=== PATIENT | male | born 1950 | race African-American/Black ===

== ENCOUNTER 2017-11-19 06:04 | Day surgery (SDC) | payer MEDICARE, OTHER ==
[~2017-11-19] VITALS: Ht 172.7 cm; Wt 82.8 kg
[~2017-11-19 06:04] MED LIST: AMLO5 PO; LORTA5 PO; PRIN20TA2 PO
[2017-11-19] MEDS ORDERED: IOHEXOL 350 MG/ML 100 ML BTL (for Cath Lab) OTHER ONE (06:05)
[2017-11-19 07:00] VITALS: BP 176/97; PULSE 63; RESP 18; TEMP 98.1; O2SAT 100
[2017-11-19] MEDS ORDERED: SODIUM CHLOR 0.9% 1000 ML INJ 1,000 ML IV SCH ×2 (07:00→10:39)
[2017-11-19] MEDS ORDERED: LISI-515 PO ×2 (07:09)
[2017-11-19] MEDS ORDERED: ECASA81 PO (07:09)
[2017-11-19] MEDS ORDERED: ATOR40TA16 PO (07:09)
[2017-11-19] MEDS ORDERED: AMLO2.5T PO (07:09)
[2017-11-19] MEDS ORDERED: HEPARIN-NS/PF FLUSH BAG 2,000 ML IV FLUSH ONE (08:01)
[2017-11-19] MEDS ORDERED: MIDAZOLAM HCL 2 MG/2 ML VIAL ONE ×3 (08:33→09:47)
[2017-11-19] MEDS ORDERED: HEPARIN SODIUM - IV 10,000 UNITS/10 ML VIAL ONE (08:34)
[2017-11-19] MEDS ORDERED: CLOPIDOGREL 300 MG TAB ONE (10:17)
--- NOTE | 2017-11-19 10:32 | CATHPROC ---
TeamLINKS HIS Report Study Information Study Number Admission Scheduled Start Study Start [id number] Nov 19 2017 6:04AM 11/19/2017 Nov 19 2017 7:58AM Ransom Service Cath Endovascular Study Admit Source Facility Department Other [facility] Physician and Clinical Staff Initial Abdelrahman Lamas Senior Accountant Analyst Renetta Ferrari,KOMAL Other Maykel Hu,RT(R) Recorder Michael SAUCEDA, Jet Brock,RT(R) Procedures Performed Procedure Location (Site) Vessel Name Abdominal Angiogram Abd Aorta (A3) Aorta Angiogram (manual) Iliac L. Com. (L4) [place] Art. Angiogram (manual) Popliteal R (R10) Popliteal Angiogram (manual) SFA (right) Femoral Art Angiogram (manual) Tib, Ant. (right) Popliteal Angiogram (manual) Tib, Post (right) Popliteal Periph stent Iliac L. Ext. (L5) [place] Art. Periph stent SFA (right) Femoral Art BENEFITS DIRECTOR Iliac L. Ext. (L5) [place] Art. BENEFITS DIRECTOR SFA (right) Femoral Art Wire insertion Fem Art (left) Femoral Art Equipment Time Hatchery Manager Description Size Mfg Part Number Used/Scraped WIRE, GUIDE APPROACH HYDRO [id number] 09:13 COOK/MANDEEP 300CM Used ST *[id number] 07:59 CORDIS/ MANDEEP RIM SUPER TORQUE CATHETER FR 5 Used *[id number] WIRE, STORQ STANDARD MOD J [id number] 09:36 CORDIS/ MANDEEP 300CM Used 300CM *[id number] *[id number] 10:17 DAI/ST. SHANIQUE MEDICAL ANGIOSEAL, FR6 VIP FR 6 Used *[id number] ENDOVASCULAR [id number] 09:57 STENT, EVERFLEX 7 X 100 120CM 7 X 100 Used OneRecruit 120 ENDOVASCULAR 10:08 STENT, EVERFLEX 8 X 60 80CM 8 X 60 [id number] Used OneRecruit BALLOON, ADMIRAL EXTREME 5 [id number] 09:40 INVATEC [employer] 130CM Used X 300 130CM *[id number] BALLOON, ADMIRAL EXTREME 7 [id number] 10:15 [employer]VATEC [employer] 130CM Used X 40 130CM *[id number] BALLOON, ADMIRAL IN.PACT 6 X [id number] 09:49 [employer]VATEC [employer] 130CM Used 150 130CM *[id number] CATHETER, FR5 TRAILBLAZER [id number] 09:16 INVATEC [employer] 135CM Used .035 *[id number] 07:59 MALLINCKRODT SYRINGE, ANGIOMAT 150ML 150ML [id number] Used [id number] 07:59 MEDLINE INDUSTRIES PACK, CCL CUSTOM * Used *[id number] 07:59 MEDLINE PACER PEN, SKIN DUAL W/ RULER * Used *[id number] PIG ANG 145 DXTERITY 08:54 MEDTRONIC FR 5 [id number] Used CATHETER [id number] 10:17 Belly Ballot MEDICAL SHEATH, FR6.5 PRELUDE 11CM FR 6.5 038ACT Used *[id number] 07:59 Belly Ballot MEDICAL WIRE, EXCHANGE 260CM 3MMJ 260CM Used *[id number] 07:59 NAMIC MANIFOLD, 4 PORT * Used *[id number] 07:59 NAMIC TUBING, HIGH PRESSURE 48" 48" Used *[id number] 07:59 NYCOMED OMNIPAQUE, 300 MG, 150ML 150ML [id number] Used [id number] 07:59 [place] MEDICAL BLANKET,WARM AIR CCL * Used *[id number] PTD292 07:59 TERUMO MEDICAL SHEATH, FR5 TERUMO (10CM) FR 5 Used *[id number] SHEATH, FR6 PINNACLE [id number] 09:25 TERUMO MEDICAL/MANDEEP FR 6 Used DESTINATION 45CM *[id number] WIRE, ANGLE GLIDE STIFF .035 [id number] 07:59 TERUMO MEDICAL/MANEDEP 260CM Used 260CM *[id number] Equipment Model, Serial, Lot Number and Expiration Data Description Model Number Serial Number Lot Number Expiration Date ANGIOSEAL, FR6 VIP [id number] 07-21-2018 CATHETER, FR5 TRAILBLAZER .035 [id number] 10-31-2019 STENT, EVERFLEX 7 X 100 120CM [id number] 04-28-2020 STENT, EVERFLEX 8 X 60 80CM [id number] 07-31-2019 WIRE, GUIDE APPROACH HYDRO [id number] 04-11-2020 ST History: Allergies Allergy Reaction NKDA Labs Hgb (g/dl) Hct (%) RBC (MIL/MM3) WBC (l/cumm) Platelets (thousands) 11.60-17.00 35.00-51.00 4.00-5.90 4.00-11.00 150.00-450.00 16.1 49 5.2 5.1 266 Glucose (mg/dl) BUN (mg/dl) Creatinine (mg/dl) BUN:Creatinine (1:x) 74.00-106.00 7.00-18.00 0.50-1.30 10.00-20.00 95 14 1.3 10.8 Na (meq/l) K (meq/l) 136.00-145.00 3.50-5.10 140 5 INR (PTT:PT) 0.90-1.10 1 CPK-MB (ng/ML) 0.50-3.60 Not Drawn Medication Medication Total Dose (Bolus/Oral) Medication Total Dosage/Unit 1% XYLOCAINE 20 mL FENTANYL 150 mcg HEPARIN 6000 units NTG (IC) 500 mcg PLAVIX 600 mg VERSED 6 mg Medications (Bolus/Oral) Medication Time Given Dosage/Unit Administered By Reason VERSED 11/19/2017 9:00:14 AM 2 mg Renetta Ferrari For sedation 2 mg VERSED given in lab by Renetta Ferrari RN via Peripheral IV. Ordered by Abdelrahman Patton. Reason: For sedation. FENTANYL 11/19/2017 9:01:46 AM 50 mcg Renetta Ferrari For sedation 50 mcg FENTANYL given in lab by Renetta Ferrari, RN via Peripheral IV. Ordered by Abdelrahman Patton. Reas on: For sedation. 1% XYLOCAINE 11/19/2017 9:03:51 AM 20 mL Abdelrahman Patton 20 mL 1% XYLOCAINE given in lab by Abdelrahman Patton in Left Groin via Subcutaneous. VERSED 11/19/2017 9:16:08 AM 1 mg Renetta Ferrari For sedation 1 mg VERSED given in lab by Renetta Ferrari, KOMAL via Peripheral IV. Ordered by Abdelrahman Patton. Reason: For sedation. FENTANYL 11/19/2017 9:17:15 AM 25 mcg Renetta Ferrari For sedation 25 mcg FENTANYL given in lab by Renetta Ferrari, KOMAL via Peripheral IV. Ordered by Abdelrahman Patton. Reas on: For sedation. HEPARIN 11/19/2017 9:33:17 AM 5000 units Renetta Ferrari 5000 units HEPARIN given in lab by Renetta Ferrari RN via Peripheral IV. Ordered by Abdelrahman Patton. VERSED 11/19/2017 9:41:28 AM 1 mg Celestino Ferrarion For sedation 1 mg VERSED given in lab by Renetta Ferrari RN via Peripheral IV. Ordered by Abdelrahman Patton. Reason: For sedation. HEPARIN 11/19/2017 9:42:04 AM 1000 units Renetta Ferrari 1000 units HEPARIN given in lab by Renetta Ferrari RN via Peripheral IV. Ordered by Abdelrahman Patton. FENTANYL 11/19/2017 9:42:34 AM 25 mcg Renetta Ferrari For sedation 25 mcg FENTANYL given in lab by Renetta Ferrari RN via Peripheral IV. Ordered by Abdelrahman Patton. Reas on: For sedation. NTG (IC) 11/19/2017 9:45:48 AM 100 mcg Abdelrahman Patton 100 mcg NTG (IC) given in lab by Abdelrahman Patton via Intra-arterial. Ordered by Abdelrahman Patton. VERSED 11/19/2017 9:48:30 AM 1 mg Renetta Ferrari For sedation 1 mg VERSED given in lab by Renetta Ferrari RN via Peripheral IV. Ordered by Abdelrahman Patton. Reason: For sedation. FENTANYL 11/19/2017 9:50:07 AM 25 mcg Renetta Ferrari For sedation 25 mcg FENTANYL given in lab by Renetta Ferrari RN via Peripheral IV. Ordered by Abdelrahman Patton. Reas on: For sedation. VERSED 11/19/2017 9:53:28 AM 1 mg Renetta Ferrari For sedation 1 mg VERSED given in lab by Renetta Ferrari RN via Peripheral IV. Ordered by Abdelrahman Patton. Reason: For sedation. FENTANYL 11/19/2017 9:54:32 AM 25 mcg Renetta Ferrari For sedation 25 mcg FENTANYL given in lab by Renetta Ferrari RN via Peripheral IV. Ordered by Abdelrahman Patton. Reas on: For sedation. NTG (IC) 11/19/2017 9:54:37 AM 400 mcg Abdelrahman Patton 400 mcg NTG (IC) given in lab by Abdelrahman Patton via Intra-arterial. Ordered by Abdelrahman Patton. PLAVIX 11/19/2017 10:22:49 AM 600 mg Renetta Ferrari 600 mg PLAVIX given in lab by Renetta Ferrari, RN via Oral. Ordered by Abdelrahman Patton. Initial Case Assessment Cardiovascular NIBP 152/86 Edema Present Skin color Skin None Normal Warm Dry Circulatory - Right Pulses Dorsalis Pedis Femoral d 2 Scale (0,1,2,3,4,d) Circulatory - Left Pulses Dorsalis Pedis Femoral d 1 Scale (0,1,2,3,4,d) Neurological State Oriented to time-place- Alert Moves all extremities person Respiration - General Respiration Rate SpO2 (%) (B/min) 20 98 Chronological Log Time Study Chronological Log 8:32:35 Patient arrived via Bed. 8:32:37 Patient Name, D.O.B, / Armband Verified By R.N. 8:32:39 Consent signed by the physician and the patient and verified by the [facility] staff. 8:32:41 Pre-op and post- op instructions given; patient acknowledges understanding of instructions. 8:33:24 History and physical on the chart or being dictated. Vitals capture started with the following parameters, Patient=Adult, Interval=5 min, Initial Pr owfrnt=465 mmHg, 8:43:46 Deflation Rate=5 mmHg, Cuff placed on Right Ankle 8:43:51 Presedation assessment performed by [facility] RN. 8:45:02 HR=59 bpm, RHAE=179/86 mmhg, SpO2=99.0 %, Resp=20 B/min, Pain=0, Misael=10, Crooks=2 8:46:07 Patient has been NPO for More than 6Hrs. 8:46:13 Skin Breakdown- none reported 8:46:30 Frances Prominences Protected 8:46:34 A # 20 IV was noted in the Antecubital (left). Grade = 0 NS @ KVO Assessment: Initial Case, PODJ=460/86 mmhg, Edema=None, Color=Normal, Skin = Warm, Dry Right Pulses: Kendall Ped=d, Femoral=2 8:47:33 Left Pulses: Kendall Ped=d, Femoral=1 Neurological: State=Alert, Ox3, GALLEGOS Respiration: Resp=20 B/min, SpO2=98 % 8:48:55 Bilateral groins prepped with 2% chlorhexidine, and draped after a 3 min. waiting time. 8:49:26 HR=60 bpm, VRUW=410/83 mmhg, SpO2=98.0 %, Resp=16 B/min, Crooks=2 8:54:08 MD paged 8:54:27 HR=57 bpm, JKIC=206/77 mmhg, SpO2=99.0 %, Resp=20 B/min, Crooks=2 8:54:40 Reference ECG taken 8:56:46 Pressure channel 1 zeroed. 8:57:22 MD responded 8:59:26 HR=58 bpm, SULT=196/80 mmhg, NyG1=309.0 %, Resp=17 B/min, Crooks=2 9:00:14 2 mg VERSED given in lab by Renetta Ferrari, RN via Peripheral IV. Ordered by Abdelrahman Patton. Reason: For sedation. :00:46 MD arrived. 50 mcg FENTANYL given in lab by Renetta Ferrari, RN via Peripheral IV. Ordered by Abdelrahman Patton. Reason: For ::46 sedation. Time Out. Correct patient, correct procedure, correct physician, power injector loaded, or not l oaded with contrast with 9:02:20 surgical team present. Time Out Concurred by MD and individual staff in procedure. 9:02:29 Case Start 9:03:51 20 mL 1% XYLOCAINE given in lab by Abdelrahman Patton in Left Groin via Subcutaneous. 9:04:54 HR=57 bpm, OYCB=332/70 mmhg, CkP9=374.0 %, Resp=20 B/min, Crooks=2 9:08:43 Access site was Left Femoral Artery. 9:09:02 5 fr dilator inserted 9:09:05 A WIRE, ANGLE GLIDE STIFF .035 260CM 260CM was inserted via Fem Art (left). 9:09:24 HR=55 bpm, NWGG=455/73 mmhg, NxF8=408.0 %, Resp=16 B/min, Crooks=2 9:12:38 A SHEATH, FR5 TERUMO (10CM) FR 5 was advanced into the Fem Art (left) using the Modified Lilly brendan technique. 9:13:04 Wire removed 9:13:12 A WIRE, GUIDE APPROACH HYDRO ST 300CM was inserted via Fem Art (left). 9:14:21 HR=56 bpm, RKHI=840/69 mmhg, NyM3=405.0 %, Resp=17 B/min, Crooks=2 A CATHETER, FR5 TRAILBLAZER .035 135CM was advanced over a wire. OMNIPAQUE, 300 MG, 150ML 150ML was 9:15:56 used for injections. 9:16:08 1 mg VERSED given in lab by Renetta Ferrari, KOMAL via Peripheral IV. Ordered by Abdelrahman Patton. Reason: For sedation. 9:16:27 Wire removed 9:16:54 A WIRE, ANGLE GLIDE STIFF .035 260CM 260CM was inserted via Fem Art (left). 25 mcg FENTANYL given in lab by Renetta Ferrari, KOMAL via Peripheral IV. Ordered by Abdelrahman Patton. Reason: For 9:17:15 sedation. 9:17:21 Catheter was removed A PIGTAIL ANG. INFINITI CATHETER FR 5 was advanced over a wire. OMNIPAQUE, 300 MG, 150ML 150ML w as used 9:17:47 for injections. 9:18:48 Wire removed 9:19:06 Through a PIGTAIL ANG. INFINITI CATHETER FR 5, The Abdominal Aorta was injected with 20 cc's of contrast. 9:19:24 HR=54 bpm, FRAR=017/71 mmhg, TaK1=853.0 %, Resp=26 B/min, Crooks=2 9:20:32 A WIRE, ANGLE GLIDE STIFF .035 260CM 260CM was inserted via Fem Art (left). After removing the current catheter a RIM SUPER TORQUE CATHETER FR 5 was advanced over a WIRE, A NGLE GLIDE 9:20:47 STIFF .035 260CM 260CM. Recorded Pressure: Ao, HR=56, Condition=Condition 1 9:22:12 (Aorta) Ao 120/56/80 9:22:35 Through a RIM SUPER TORQUE CATHETER FR 5, The Iliac R. Com. (R4) was injected with 5 cc's of contrast. 9:23:06 Through a RIM SUPER TORQUE CATHETER FR 5, The Iliac R. Com. (R4) was injected with 5 cc's of contrast. 9:23:33 SFA (right) angiogram, manually injected. 9:24:23 HR=60 bpm, ZXAX=688/74 mmhg, JvC8=474.0 %, Resp=19 B/min, Crooks=2 9:24:59 Popliteal R (R10) angiogram, manually injected. 9:25:41 Tib, Ant. (right) angiogram, manually injected. 9:26:06 Tib, Post (right) angiogram, manually injected. 9:26:28 A WIRE, ANGLE GLIDE STIFF .035 260CM 260CM was inserted via Fem Art (left). A SHEATH, FR6 PINNACLE DESTINATION 45CM FR 6 was exchanged in the Fem Art (left). This was julia roberson in order 9:29:22 to accomodate a larger catheter. 9:29:24 HR=66 bpm, SMMQ=480/77 mmhg, YeX8=976.0 %, Resp=16 B/min, Crooks=4 9:30:35 Wire removed 9:31:36 A WIRE, ANGLE GLIDE STIFF .035 260CM 260CM was inserted via Fem Art (left). 9:31:43 A CATHETER, FR5 TRAILBLAZER .035 135CM was advanced over a wire. contrast was used for injec tions. 9:33:17 5000 units HEPARIN given in lab by Renetta Ferrari RN via Peripheral IV. Ordered by Ruel Patton. 9:34:23 HR=61 bpm, VJJZ=883/76 mmhg, ThL8=697.0 %, Resp=18 B/min, Crooks=4 9:36:48 The previous wire was exchanged for a WIRE, STORQ STANDARD MOD J 300CM 300CM. 9:39:26 HR=56 bpm, OLVK=423/71 mmhg, XeP6=236.0 %, Resp=19 B/min, Crooks=4 A BALLOON, ADMIRAL EXTREME 5 X 300 130CM 130CM was inserted over WIRE, STORQ STANDARD MOD J 300C M 9:39:52 300CM via the SFA (right). 9:40:25 In the SFA (right) a BALLOON, ADMIRAL EXTREME 5 X 300 130CM 130CM was inflated to 8 atms for 60 seconds. 9:41:28 1 mg VERSED given in lab by Renetta Ferrari RN via Peripheral IV. Ordered by Abdelrahman Patton. Reason: For sedation. 9:42:04 1000 units HEPARIN given in lab by Renetta Ferrari, KOMAL via Peripheral IV. Ordered by Ruel Patton. 25 mcg FENTANYL given in lab by Renetta Ferrari RN via Peripheral IV. Ordered by Abdelrahman Patton. Reason: For 9:42:34 sedation. 9:44:09 ACT (Normal Range 90-180) = 270 9:45:02 HR=69 bpm, ZGXH=470/98 mmhg, QbU2=381.0 %, Resp=20 B/min, Crooks=4 9:45:13 In the SFA (right) a BALLOON, ADMIRAL EXTREME 5 X 300 130CM 130CM was inflated to 8 atms for 90 seconds. 9:45:29 Balloon Removed. 9:45:48 100 mcg NTG (IC) given in lab by Abdelarhman Patton via Intra-arterial. Ordered by Babatunde Patton 9:48:30 1 mg VERSED given in lab by Renetta Ferrari, KOMAL via Peripheral IV. Ordered by Abdelrahman Patton. Reason: For sedation. A BALLOON, ADMIRAL IN.PACT 6 X 150 130CM 130CM was inserted over WIRE, STORQ STANDARD MOD J 300C M 9:49:19 300CM via the SFA (right). 9:49:29 HR=71 bpm, APLD=590/89 mmhg, LrO0=952.0 %, Resp=16 B/min, Crooks=4 25 mcg FENTANYL given in lab by Renetta Ferrari RN via Peripheral IV. Ordered by Abdelrahman Patton. Reason: For 9:50:07 sedation. 9:51:19 In the SFA (right) a BALLOON, ADMIRAL IN.PACT 6 X 150 130CM 130CM was inflated to 8 atms for 180 seconds. 9:52:37 In the SFA (right) a BALLOON, ADMIRAL IN.PACT 6 X 150 130CM 130CM was inflated to 8 atms for 45 seconds. 9:53:28 1 mg VERSED given in lab by Renetta Ferrari, KOMAL via Peripheral IV. Ordered by Abdelrahman Patton. Reason: For sedation. 9:54:05 Balloon Removed. 25 mcg FENTANYL given in lab by Renetta Ferrari, KOMAL via Peripheral IV. Ordered by Abdelrahman Patton. Reason: For 9:54:32 sedation. 9:54:37 400 mcg NTG (IC) given in lab by Abdelrahman Patton via Intra-arterial. Ordered by Babatunde Patton n. 9:55:15 HR=76 bpm, UACV=386/77 mmhg, UyJ5=135.0 %, Resp=20 B/min, Crooks=2 A STENT, EVERFLEX 7 X 100 120CM 7 X 100 was advanced through a catheter over a WIRE, STORQ STAND MYRA MOD J 9:57:23 300CM 300CM. 9:59:33 HR=75 bpm, TDNT=529/63 mmhg, WrU4=731.0 %, Resp=14 B/min, Crooks=2 9:59:51 Activated Clotting Time Drawn 10:00:36 A STENT, EVERFLEX 7 X 100 120CM 7 X 100 was deployed at in the SFA (right). 10:01:13 Delivery device removed A BALLOON, ADMIRAL IN.PACT 6 X 150 130CM 130CM was inserted over WIRE, moziy STANDARD MOD J 300 CM 10:01:21 300CM via the SFA (right). 10:01:42 In the SFA (right) a BALLOON, ADMIRAL IN.PACT 6 X 150 130CM 130CM was inflated to 8 atms fo r 10 seconds. 10:02:34 ACT (Normal Range 90-180) = 302 10:03:41 Balloon Removed. 10:04:30 HR=73 bpm, AWUS=416/77 mmhg, ReX6=404.0 %, Resp=19 B/min, Crooks=2 10:05:24 Iliac L. Com. (L4) angiogram, manually injected. 10:09:31 HR=57 bpm, WPRA=080/72 mmhg, GpY2=359.0 %, Resp=15 B/min, Crooks=2 A STENT, EVERFLEX 8 X 60 80CM 8 X 60 was advanced through a catheter over a WIRE, moziy STANDAR D MOD J 10:10:28 300CM 300CM. 10:12:58 A STENT, EVERFLEX 8 X 60 80CM 8 X 60 was deployed Iliac L. Ext. (L5). 10:13:55 Delivery device removed 10:14:34 HR=54 bpm, ZGZU=671/65 mmhg, Resp=17 B/min, Crooks=2 A BALLOON, ADMIRAL EXTREME 7 X 40 130CM 130CM was inserted over WIRE, STORQ STANDARD MOD J 300C M 10:15:02 300CM via the Iliac L. Ext. (L5). 10:15:26 In the Iliac L. Ext. (L5) a BALLOON, ADMIRAL EXTREME 7 X 40 130CM 130CM was inflated to 8 a tms for 20 seconds. A SHEATH, FR6.5 PRELUDE 11CM FR 6.5 was exchanged in the Fem Art (left). This was necessary in order to achieve 10:17:05 vascular hemostasis. 10:19:35 Peripheral Vascular Intervention Performed. 10:20:02 HR=59 bpm, SGNT=937/81 mmhg, SpO2=99.0 %, Resp=14 B/min, Crooks=2 10:20:13 ANGIOSEAL, FR6 VIP FR 6 placement in the Fem Art (left) 10:20:47 Case End 10:21:01 Sterile dressing applied to site 10:21:04 No case complications noted. 10:22:49 600 mg PLAVIX given in lab by Renetta Ferrari RN via Oral. Ordered by Abdelrahman Patton. 10:24:30 HR=57 bpm, MOWM=804/75 mmhg, GqJ9=560.0 %, Resp=27 B/min, Crooks=2 10:24:42 Implantable Device card placed in patient's chart. 10:27:04 DOCU called. 10:29:13 Vitals capture stopped. 10:31:29 Patient moved to [facility] End Study - Contrast Media Used In Study Contrast Total Opened (mL) Total Used (mL) Total Wasted (mL) Omnipaque 200 170 30 End Study - Maximum Contrast Load Max Contrast Load (mL) 318.5 End Study - Radiation Exposure Fluoro Time (minutes) 21.7 End Study - Patient Disposition Complications Transferred To Interventional Outcome No [facility] Holding successful
[2017-11-19] MEDS ORDERED: ATROPINE SULFATE 1 MG/ML VIAL IV PUSH PRN (10:45)
[2017-11-19] MEDS ORDERED: METOCLOPRAMIDE HCL 10 MG/2 ML VIAL IV PUSH PRN (10:45)
[2017-11-19] MEDS ORDERED: BACITRACIN OINT 0.9 GM PKT TOP ONE (10:45)
[2017-11-19] MEDS ORDERED: MISC INFORMATION XX ONE (10:45)
[2017-11-19] MEDS ORDERED: oxyCODONE/ACETAMINOPHEN 5 MG/325 MG TAB PO PRN (10:45)
[2017-11-19] MEDS ORDERED: SODIUM CHLOR 0.9% 250 ML INJ 250 ML IV PRN (10:45)
[2017-11-19] MEDS ORDERED: oxyCODONE/ACETAMINOPHEN 10 MG/325 MG TAB PO PRN (10:45)
[2017-11-19] MEDS ORDERED: PLAV75TA29 PO (10:46)
--- NOTE | 2017-11-19 11:52 | MA ---
cc: Abdelrahman Patton MD 11/19/2017 PERIPHERAL ANGIOGRAPHY WITH INTERVENTION PROCEDURE PERFORMED: 1. Fluoroscopy with interpretation. 2. Descending aortography. 3. Right lower extremity peripheral angiography. First, second and third order visualization interpretation. 4. Percutaneous transluminal angioplasty with drug-coated balloon and endovascular stenting of the chronically occluded right superficial femoral artery. 5. Percutaneous intervention stenting self-expanding of the external iliac artery. METHOD: Risks, benefits and alternatives discussed with the patient. The understood, consent to the procedure. The patient was brought to the catheterization lab, placed on the catheterization table. Left groin was prepped and draped in a sterile fashion. Left groin was anesthetized with 2% lidocaine. The left common femoral artery was cannulated and 5 Danish 11 cm sheath was placed without difficulty. We had difficulty navigating up the left external iliac artery. Not only was it tortuous, but there was also severe stenosis. We tried with a regular J and a Glidewire. We ultimately got through with a 0.014-inch [place] [address] ST 300 cm wire, advanced that to the descending aorta and exchanged using an 0.035 TrailBlazer catheter. A 360 J-wire was then advanced in descending aorta. DESCENDING AORTOGRAPHY: Descending aortography was performed anterior-posterior views using 20 mL contrast injection, good opacification. Descending aortography revealed mild inferior and descending aortic atherosclerosis. Bilateral renal arteries widely patent. PERIPHERAL ANGIOGRAPHY: common iliac artery has mild diffuse disease with some mildly aneurysmal segments but nothing that appears severe. Right external also has some mild disease, does not appear obstructive. Right internal iliac is widely patent. Right common femoral and profunda arteries are patent. Superficial femoral artery is occluded through the entire prox and mid segment, does recanalize via profunda collaterals distally. Popliteal has mild irregularities. Anterior tibial has a focal 70% lesion in the mid segment and the peroneal and posterior tibial vessels are smaller caliber size but do reach the level of the ankle. The dorsalis pedis feeds pretty much the entire foot. PERCUTANEOUS INTERVENTION: A 0.035-inch 260 cm stiff angled Glidewire was navigated down through a RIM catheter, selectively engaged in the right common iliac artery into the origin of the right superficial femoral artery. A 6 Danish 45 cm [employer] [place] sheath was advanced up in the aortic arch into the right common femoral artery. With some time and effort, we were finally able to cross through the chronic occlusion using a Glidewire in addition to a TrailBlazer catheter, navigated the wire down into the distal anterior tibial vessel, exchanged for a 0.035-inch 300 cm Cordis wire. TrailBlazer catheter was removed. Heparin was administered throughout the entire procedure to maintain appropriate anticoagulation. We advanced a 5.0 x 200 mm Medtronic balloon deployed on 2 sequential inflations to the right superficial femoral artery. Repeat angiography showed severe residual stenosis. A 6.0 x 120 mm Medtronic drug-coated balloon was deployed in the mid segment of the right superficial femoral artery for a prolonged inflation. A 7.0 x 100 mm Medtronic self-expanding stent was deployed in the proximal segment of superficial femoral artery and post-dilated. Repeat angiography showed no residual stenosis, DIDIER 3 flow. Attention was then directed now towards the left external iliac artery. Repeat angiography showed significantly reduced flow, which may be secondary to straightening out in tortuosity but we wanted to cover the clear dissection flap that was also present. An 8.0 x 60 mm Medtronic self-expanding stent was then carefully deployed at the bifurcation of the internal and external iliac arteries extending back to the very proximal segment of the common femoral artery and post-dilated with a 7.0 x 40 mm Medtronic balloon. Repeat angiography showed no residual stenosis, DIDIER 3 flow. Sheath was then removed. Angio-Seal device deployed with good hemostasis. CONCLUSIONS: 1. Mild infrarenal descending aorta atherosclerosis. 2. Chronically occluded right superficial femoral artery. 3. Successful percutaneous transluminal angioplasty, drug-coated balloon angioplasty stenting of the right superficial femoral artery. 4. Successful endovascular stent and with self-expanding stent of the left external iliac artery. PLAN: Will monitor patient closely for any post-procedural complications. Hopefully, he can be discharged later today with addition of Plavix to his regimen. MD TOM Frey/MIREYA , 10:51 AM , 11:51 AM DEMETRIO
[2017-11-19] MEDS ORDERED: hydrALAZINE HCL 20 MG/ML VIAL IV PUSH ONE (12:00)
[2017-11-20] MEDS ORDERED: ASPIRIN 81 MG CHEW TAB PO SCH (09:00)
[2017-11-20] MEDS ORDERED: CLOPIDOGREL 75 MG TAB PO SCH (09:00)
== END 2017-11-19 16:29 | disposition home or self-care (01) ==
LOC: HDOC 06:04 → HDIC 06:05 → HDOC 16:29
PROVIDERS: ATTEND Internal Medicine
DX: I70.203 Unspecified atherosclerosis of native arteries of extremities, bilateral legs (principal); I70.92 Chronic total occlusion of artery of the extremities; I70.0 Atherosclerosis of aorta; I74.5 Embolism and thrombosis of iliac artery; I10 Essential (primary) hypertension; E78.5 Hyperlipidemia, unspecified; Z87.891 Personal history of nicotine dependence; Z79.82 Long term (current) use of aspirin
CPT/HCPCS: 36200; 36247; 37221; 37226; 75625; 75710; 85002; 86850; 86900; 86901; 99152; 99153; C1725; C1751; C1760; C1769; C1876; C1893; C2623; G0269; J0360; J1644; J2250; J3010; Q9967